=== PATIENT | male | born 1950 | race Caucasian/White ===

== ENCOUNTER 2020-06-23 14:33 | Inpatient (IN) | payer OTHER ==
[~2020-06-23] VITALS: Ht 185.4 cm; Wt 105.0 kg
[2020-06-23 20:10] VITALS: BP 133/84
[2020-06-23] MEDS ORDERED: SEROQUEL200 MG PO (23:32)
[2020-06-24] MEDS ORDERED: ASA81BEC PO (00:34)
[2020-06-24] MEDS ORDERED: MELATONIN3 M1 PO (00:34)
[2020-06-24] MEDS ORDERED: SUPER THERAVIT1 EACH PO (00:34)
[2020-06-24] MEDS ORDERED: FISH OIL 1,001000 M3 PO (00:35)
[2020-06-24] MEDS ORDERED: LEVO-T137 MCG PO (00:35)
[2020-06-24] MEDS ORDERED: LIPITOR40 MG PO (00:35)
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
--- NOTE | 2020-06-24 09:03 | NUR ---
0700 ASSUMED CARE OF PATIENT, PATIENT SITTING IN DAYROOM AWAKE INGERI CHAIR WITH LAP DONSI FASTENED IN FRONT. PATIENT CALM AT THAT TIME. 0745 PATIENT UP AMB IN HALEY PACING AND ENTERING OTHER PATIENT ROOMS. PATIENT NOT EASILY REDIRECTABLE. PATIENT SAT DOWN TO EAT BREAKFAST THEN BACK UP TO PACE IN HALLWAY. PATIENT IS EXIT SEEKING AT THIS TIME. ATIVAN 1 MG PO GIVEN @ 0815 FOR INCREASED AGGITATION. OTHER MEDS REFUSED, ATTEMPTED TO GIVE CRUSHED WELL AND PATIENT SPIT OUT MEDS.
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
[2020-06-24 09:24] VITALS: BP 140/84
--- NOTE | 2020-06-24 11:13 | NUR ---
PT DTR FRANCESCA CALLED AND ASKED ABOUT IF HE WAS ON GEODON AT THIS TIME. SHE WANTED TO HAVE GEODON A ALLERGY FOR INCREASED AGITATION AND COMBATIVENESS. GAVE FAMILY PRIVACY CODE DUE TO NOT GETTING IT WHEN HE ARRIVED DURING THE NIGHT.
--- NOTE | 2020-06-24 12:05 | NUR ---
0945 50MG THORAZINE GIVEN IM TO RIGHT DELTOID FOR INCREASED AGITATION AFTER REFUSING PO MEDICATION. ASSISTED WITH IM INJECTION FROM SECURITY AND STAFF. PATIENT UP AMB IN HALEY WITH UNSTEADY GAIT. PATIENT DOES NOT REDIRECT EASILY. WALKER GIVEN TO PATIENT AND PATIENT USES WALKER FOR A WHILE THEN LEAVES IT IN HALEY. PATIENT HARD TO UNDERSTAND PATIENT MUMBLES CONSTANTLY. PATIENT SITS AT TABLE TO EAT, HAVING DIFFICULTY FEEDING SELF AT THIS TIME. STAFF ASSISTING WITH PREPARING MEAL TO EAT. WILL CONTINUE TO OBSERVE
--- NOTE | 2020-06-24 12:25 | NUR ---
Nutrition Note: Pt assessed due to new admit to [facility]. Admitted for lewy body dementia with aggressive behaviors. PMH of lewy body dementia, HLD, hypothyroidism, CKD 3, obesity. 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 Ate 80% of breakfast this am. No c/o recent wt changes. Pt remains low nutritional risk at this time.
--- NOTE | 2020-06-24 17:14 | NUR ---
PATIENT SLEEPING IN GERICHAR QUIETLY, UNABLE TO WAKE PATIENT FOR 1600 MEDICATION. REPORTED TO NURSE TAKING OVER.
--- NOTE | 2020-06-24 18:37 | NUR ---
PT STILL RESTING IN RECLINER CHAIR.
[2020-06-24 19:00] VITALS: BP 174/101
[2020-06-24 21:25] VITALS: BP 162/90
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
[2020-06-25 09:30] VITALS: BP 118/72
[2020-06-25 10:57] VITALS: BP 118/72; BP 118/92
--- NOTE | 2020-06-25 14:03 | NUR ---
1300 RESUMMED CARE FROM OVERNIGHT SHIFT THIS AM, PATIENT IN DAY ROOM QUIET. PATIENT ALERT ORIENTED TO SELF AND PLACE ONLY PATIENT MUMBLES WE HE TALKS. PATIENT UNABLE TO TELL ME ABOUT SI/HI/AH/VH AT PRESENT DUE TO COGNITIVE DO. PATIENT CALM COOPERATIVE ABDOMEN SOFT BOWEL SOUNDS PRESENT PATIENTS LUNGS CLEAR. PATIENT SAT IN GROUPS AND SOME PARTICIPATION WILL CONTINUE TO MONITOR PATIENT FOR SAFETY AND BEHAVIORS.
[2020-06-25 14:14] LABS: URINE BILIRUBIN NEGATIVE (Negative); URINE BLOOD NEGATIVE (Negative); URINE CLARITY CLEAR; URINE COLOR YELLOW; URINE GLUCOSE-RANDOM* NEGATIVE (Negative); URINE KETONES NEGATIVE (Negative); URINE LEUKOCYTES-REFLEX NEGATIVE (Negative); URINE NITRITE-REFLEX NEGATIVE (Negative); URINE PROTEIN (DIPSTICK) NEGATIVE (Negative); URINE SPECIFIC GRAVITY 1.025 (1.005-1.035); URINE UROBILINOGEN 0.2 E.U./dl (0.2-1.0)
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
--- NOTE | 2020-06-26 05:19 | NUR ---
AWAKE AND CRAWLED OUT OF END OF BED TRIGGERING BED EXIT ALARM AT 0445-GAIT VERY UBSTEADY WHEN STAFF ATTEMPTED TO ASSIT IN AMBULATION STRUCK OUT AT NURSE STATING "LEAVE ME ALONE I CAN DO IT" STUMBLING AND ALMOST FALLING TO FLOOR-SECURITY CONTACTED TO ASSIST IN AMBULATING PT BACK TO BED-OFFERED ATIVAN AND THORAZINE PO CRUSHED IN PUDDING BUT REFUSED TO OPEN MOUTH. THORAZINE 5OMG IM GIVEN RVG WITH ASSIST OF SECURITY.
--- NOTE | 2020-06-26 09:14 | NUR ---
SW spoke to pt's Debbie and obtained history to complete assessment and tx plan. Debbie provided a secondary number to reach her [phone]. SW team will continue to monitor.
[2020-06-26 09:34] VITALS: BP 152/84
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
[2020-06-26 21:37] VITALS: BP 148/70
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
[2020-06-27 07:34] VITALS: BP 144/81
[2020-06-27 09:06] VITALS: BP 144/81
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
[2020-06-27 19:25] VITALS: BP 113/73
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
[2020-06-27 22:17] VITALS: BP 113/73
[2020-06-28 08:54] VITALS: BP 103/63
[2020-06-28 11:44] VITALS: BP 103/63
--- NOTE | 2020-06-28 13:16 | EKG ---
[address] [address] ELECTROCARDIOGRAM REPORT Name: STEPHANIE ALICEAOLL Room #: [facility] [place] ADM IN M.R.#: [id number] Admission: 06/23/20 Attend Phys: Kimberly Gonzales MD Discharge: Date of : 50 Report #: [id number] [facility] Test Date: 2020-06-28 Test Time: 11:25:34 Pat Name: YASHIRA ALICEA Department: Room: [facility] Gender: M Clinical Team Manager: FUAD : 1950 Requested By: Teo Smith Order Number: [id number] MD: Bret Tillman Measurements Intervals [place] Rate: 64 P: 51 UT: 209 QRS: 10 QRSD: 106 T: 31 QT: 409 QTc: 422 Interpretive Statements Sinus rhythm No previous ECG available for comparison Electronically Signed On 06-28-2020 13:16:13 OBSTETRICS AND GYNECOLOGY PROFESSOR by Bret Tillman [email or web address] <ELECTRONICALLY SIGNED> By: Bret Tillman MD 06/28/20 1316 1125 1125 Bret Tillman MD /CESAR
--- NOTE | 2020-06-28 15:02 | NUR ---
ASSUMED CARE THIS MORNING AT 0700. THE PATIENT WAS UP, DRESSED AND ON THE UNIT FOR BREAKFAST. HE WAS COOPERATIVE WITH TAKING HIS MEDICATIONS. HE WAS COOPERATIVE WITH ASSESSMENT ALSO. NO NEW PROBLEMS NOTED OR VOICED. ATTENDED GROUPS. HE CONTINUES TO EAT WELL. HE HAS A FLAT AFFECT AND BLAND MOOD.
[2020-06-28 19:15] VITALS: BP 152/75
--- NOTE | 2020-06-29 03:14 | NUR ---
PATIENT IS A/0X1. HE SAT IN DINING ROOM THIS EVENING AND WAS CALM AND COOPERATIVE. HE TALKED ALOT AT TIMES IF CHECKING ON THINGS OR GIVING DIRECTIONS. DID NOT MAKE SENSE BUT GOT THE IDEA THAT IN HIS HEAD HE WAS WORKING. PATIENT WAS EASILY REDIRECTABLE. PATIENT WITH OUT SIGNS OR STATEMENT OF SI/HI/AVH. PATIENT WALKS WITH A STEADY GAIT AND IS A LOW FALL RISK. PATIENT TOOK HIS MEDS CRUSHED IN YOGURT WITHOUT ISSUE. DAY NURSE SAID SHE HAD TO CRUSH MEDS BECAUSE HE WAS SPITTING THEM OUT WHOLE WHEN SHE GAVE THEM TO HIM WITH APPLESAUCE. ROUTINE ROUNDS TO ASSESS SAFETY AND STATUS OF PATIENT.
[2020-06-29 05:52] LABS: ABSOLUTE NEUTROPHILS 6.1 thou/uL (1.4-8.2); BASOPHILS 0.7 % (0.0-2.0); EOSINOPHILS 2.4 % (0.0-3.0); HEMATOCRIT 37.5 % (42.0-52.0); HEMOGLOBIN 12.1 gm/dL (14.0-18.0); LYMPHOCYTES 24.5 % (24.0-44.0); MCH 26.4 pg (26.0-34.0); MCHC 32.2 g/dL (28.0-37.0); MONOCYTES 10.9 % (1.0-8.0); PLATELET COUNT 277 thou/uL (150-400); POLYS 61.5 % (36.0-66.0); RBC 4.57 mil/uL (4.50-6.00); RDW 15.5 % (10.5-14.5); WBC 9.9 thou/uL (4.0-11.0)
[2020-06-29 06:08] LABS: CALCIUM 9.1 mg/dL (8.5-10.1); CREATININE 1.4 mg/dL (0.7-1.3); POTASSIUM 4.2 mmol/L (3.5-5.1)
[2020-06-29 07:30] VITALS: BP 111/70
--- NOTE | 2020-06-29 13:09 | NUR ---
Alert and orientated to person only. Denies SI/HI. Ambulates t/o unit with slow, steady gait. States he has no problems this am except constipation, MOM given PO. Confused speech at times. Breath sounds clear. Reg HR auscultated. Color pink with brisk capillary refill and palpable peripheral pulses. +1 edema in lower extremities. Incontinent of yellow urine, brief changed. Active bowel sounds over soft, rounded abdomen. Currently sitting in day room coloring with ROBOTICS TESTING TECHNICIAN and peers.
--- NOTE | 2020-06-29 14:33 | NUR ---
ALBERTINA spoke to pt's Natalia informing her that patient's discharge date has been set for Sunday. Natalia informed ALBERTINA she had been in contact with Ian [phone]. Her point of contact is Gissel [phone] [place]/[phone] fax. ALBERTINA spoke to Gissel Batista and informed her that pt will be ready for discharge on Sunday. ALBERTINA faxed a referral. ALBERTINA also suggested Natalia consider other placements in the event [facility] is unable to accept patient. ALBERTINA emailed a list from the Medicare.gov website to [email or web address].. ALBERTINA team will continue to follow.
[2020-06-29 19:27] VITALS: BP 133/86
[2020-06-29 20:20] VITALS: BP 133/86
--- NOTE | 2020-06-30 02:54 | NUR ---
PATIENT HAS BEEN PLEASANT AND COOPERATIVE TONIGHT. HE DID TAKE HIS MEDS TONIGHT. HALF BY MOUTH WITH WATER AND THE OTHER HALF CRUSHED IN YOGURT. HE WANDERED AIMLESSLY AROUND UNIT AND AT TIMES WOULD STOP A NURSE AND ASK WHAT HE WAS TO DO AND HOW WAS HE TO GET HOME. HE WANTED TO KNOW WHY HE IS HERE AND WHAT THE PROCESS IS. HE WAS CONCERNED ABOUT HOW HE GOT HERE. PATIENT DOES NOT TALK SENSICALLY BUT CAN UNDERSTAND AT TIMES WHAT HE IS TRYING TO GET ACROSS. EVENING WENT ON HE SEEMED TO BE ESCALATING AND STARTING TO BECOME FRUSTRATED/AGITATED ABOUT BEING HERE. LORAZEPAM 1MG PO GIVEN AT THIS TIME. ASSISTED PATIENT TO HIS ROOM AND HAD HIM LAY DOWN TO REST. PATIENT FELL ASLEEP AND HAS REMAINED SO FAR TONIGHT. BED IN LOW POSITION. ROUTINE ROUNDS TO ASSESS SAFETY AND STATUS OF PATIENT.
[2020-06-30 09:03] VITALS: BP 98/66
--- NOTE | 2020-06-30 10:28 | NUR ---
DYSPORIC MOOD THIS AM, DID TAKE AM MEDICATIONS IN APPLESAUCE-SITS AWAY FROM PEER GROUP AND NO NOTED INTERACTION WITH OTHERS-ABRUPT RESPONSES TO QUESTIONS ASKED. WHEN ATTEMPTED TO DO NURSING ASSESSMENT STATES "I'M JUST ON MY WAY HOME NOW SO NO I CAN'T-I GOT PEOPLE WAITING FOR ME" DENIES PAIN/DISCOMFORT-VS STABLE. GAIT STEADY WITHOUT ASSISTIVE DEVICES. ATE 100 PERCENT OF BREAKFAST.
--- NOTE | 2020-06-30 14:20 | NUR ---
1500 MEDICATIONS PLACED IN APPLESAUCE PER PT REQUEST-HE ATE ALL APPLSAUCE AROUND PILLS AND HANDED CUP WITH THORAZINE IN IT BACK TO THIS NURSE STATING "YOU HAVE IT" DID TAKE AFTER BEING INFORMED WE WOULD HAVE T0 GIVE IM IF DOES NOT TAKE PO-ANGRY FACIAL EXPRESSION-IS SITTING IN DAYROOM WITH PEERS-WILL CONTINUE TO ONITOR. PLEASE SEE VS SECTION COMMENTS FOR ORTHO BPS REQUESTED BY MD-NO SIGIFICANT ORTHOSTATIC CHANGES NOTED WITH POSITION CHANGES-DID BECOME [id number] TO BEND OR LIFT UP ARM WHEN NURSE COMPLETING ORTH BP'S.
--- NOTE | 2020-06-30 16:53 | NUR ---
ALBERTINA received a call from Gissel with [facility] stating that pt is accepted, but wanted to make sure he was not ready for d/c as he was still having behaviors. ALBERTINA explained that in tx team it was discussed that pt still needed some med adjustment so discharge is not anticipated to occur before this weekend. She said ok. ALBERTINA faxed updates. SW team will continue to follow pt during his stay on this unit.
[2020-06-30 19:54] VITALS: BP 111/70
--- NOTE | 2020-07-01 02:13 | NUR ---
ASSESSMENT: PT WAS CALM DURING THIS SHIFT THUS FAR. WAS SITTING IN THE DAY AREA, WATCHING TELEVISION BEFORE DOZING OFF WHILE SITTING ON THE SOFA. WENT TO BED WITHOUT INCIDENT. VSS, AFEBRILE. AMBULATES WITH STEADY GAIT. CAN BE IMPULSIVE AT TIMES. TOOK MEDS WITHOUT DIFFICULTY. SLOW PROGRESS TOWARDS DC GOALS, WILL CONTINUE TO MONITOR.
[2020-07-01 09:20] VITALS: BP 118/71
--- NOTE | 2020-07-01 11:28 | NUR ---
Alert and orientated to name only. Calm, cooperative and compliant this AM. Up ambulating with regular, steady gait. Denies SI/HI. Breath sounds clear. Reg HR auscultated. Color pink with brisk capillary refill and palpable peripheral pulses. Brief dry. Active bowel sounds over soft, rounded abdomen. Sitting quietly most of the AM in day room watching TV.
--- NOTE | 2020-07-01 13:03 | NUR ---
Nutrition Note: Pt admitted for lewy body dementia with aggressive behaviors. PMH of dementia, HLD, hypothryoidism, CKD 3, obesity. Pt continues to have good appetite eating 100% of meals and snacks. Weight remains within 5% of admission. Pt remains low nutritional risk at this time.
--- NOTE | 2020-07-01 13:32 | NUR ---
RT Progress Note- Dino has been present in both the mileu and recreation therapy groups since his admission. Dino is able to engage in conversation with peers and especially participates well during music based groups. He has not displayed any inappropriate or aggressive behavior during groups. STOCKFEED MILLER will continue to encourage his participation, especially in the afternoons when pt tends to begin to wander.
[2020-07-01 19:37] VITALS: BP 133/86
[2020-07-01 19:38] VITALS: BP 160/77
[2020-07-01 20:00] VITALS: BP 133/86; BP 160/77
--- NOTE | 2020-07-02 03:32 | NUR ---
PATIENT HAS BEEN COOPERATIVE AND REDIRECTABLE. HE WAS UP IN DINING ROOM TONIGHT AND HAD HS SNACK. HE WALKED THE HALLS TONIGHT BUT WAS NOT EXIT SEEKING HAS HE HAD BEEN. PATIENT WAS ASSISTED TO BED AFTER HE HAD GONE TO ANOTHER PATIENT'S ROOM AND CLIMBED IN THEIR BED. OTHER PATIENT WAS NOT IN ROOM. PATIENT AWOKE TWICE SO FAR TONIGHT WHEN ANOTHER PATIENT NEXT DOOR WAS YELLING OUT. THIS PATIENT THOUGHT IT WAS MORNING AND WAS ASSISTED BACK TO BED WITH OUT ISSUE. PATIENT HAD TROUBLE UNDERSTANDING HOW TO TAKE HIS HS MEDS. HE COULD NOT FOLLOW THE STEPS. HE PUT THE PILLS IN HIS MOUTH AND WAS TOLD TO TAKE A DRINK OF WATER AND HE SPIT THE PILLS INTO THE WATER INSTEAD. CRUSHED PILLS IN APPLESAUCE AT THAT TIME AND PATIENT TOOK WITH OUT ISSUE THEN. NO SIGNS OF PAIN. NO SI/HI/AVH NOTED. GAIT STEADY. PATIENT HAS BEEN CALM. PATIENT APPEARS TO BE SLEEPING AT THIS TIME WITH BED IN LOW POSITION. CONTINUING TO MONITOR.
[2020-07-02 09:14] VITALS: BP 118/71
[2020-07-02 11:03] VITALS: BP 118/71
--- NOTE | 2020-07-02 13:05 | NUR ---
ALBERTINA spoke with both Corry and Faustina with [facility] and provided an update. SW will touch basis with them on Sunday and schedule an assessment. SW team will continue to follow pt during his stay on this unit.
[2020-07-02 19:46] VITALS: BP 137/89
--- NOTE | 2020-07-02 23:46 | NUR ---
Assumed care on 07/02/20 @ 1900, [facility] the [facility], trying to exit through any closed door he encounters. Calm and cooperative, redirectale and stable to ambulate. Cooperates with assessment and medication administration. Awakened @ about midnight and repeatedly asked to shave. Redirected to go back to bed each time. Will continue to monitor for safety and comfort as per unit protocol.
[2020-07-02 23:56] VITALS: BP 137/89
--- NOTE | 2020-07-03 00:39 | NUR ---
Awake at midnight, experiencing insomnia, @ 0030 [id number] provided for generalized pain and Chloropromazine 50 P.O. and Lorazepam 1mg P.O. provided for restlessness and insomnia. Took meds whole with water, laid down in bed, then in 5 minutes was up again ambulating the halls. Will continue to monitor for safety and comfort.
[2020-07-03 08:36] VITALS: BP 152/85
--- NOTE | 2020-07-03 13:57 | NUR ---
ASSUMED PT CARE THIS AM. PT VSS, A&OX2. PT TOOK MEDS WELL THIS AM WHOLE. COOPERATIVE WITH STAFF AND REDIRECTABLE. WALKING AROUND UNIT TRYING TO OPEN DOORS. WALKED IN ANOTHER PATIENTS ROOM, BUT WAS REDIRECTED TO HIS OWN ROOM. NOT AGITATED, DENIES SI/HI.
[2020-07-03 20:06] VITALS: BP 146/87
[2020-07-03 21:34] VITALS: BP 146/87
--- NOTE | 2020-07-03 23:14 | NUR ---
9037 RESUMMED CARE FROM DAY SHIFT THIS EVENING, PATIENT PACING THE HALLS AND AT DOOR TRYING TO GET OUT. I EXPLAINED TO PATIENT THAT HE IS NOT READY TO LEAVE YET. PATIENT ALERT ORIENTED TIMES SELF AND PLACE PATIENT DENIES SI/HI/AH/VH AT PRESENT. PATIENTS ABDOMEN SOFT BOWEL SOUNDS PRESENT PATIENTS LUNGS CLEAR. PATIENT TOOK MEDICATION WITHOUT INCIDENCE PATIENT CALM AND EASY TO REDIRECT. PATIENT WENT TO BED AND IS RESTING QUIETLY WILL CONTINUE TO MONITOR PATIENT FOR SAFETY AND BEHAVIORS.
[2020-07-04 09:17] VITALS: BP 138/91
[2020-07-04 10:30] VITALS: BP 138/91
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
[2020-07-04 19:35] VITALS: BP 134/75
[2020-07-04 21:15] VITALS: BP 134/75
--- NOTE | 2020-07-05 03:09 | NUR ---
Assumed pt care at 1900. A/OX2,calf sitting on the chair talking to himself.No further N/V. Had a temp of 101.3 temporal at shift change medicated with Tylenol and down to 98.5. Pt took his HS meds whole w/o any problems. Denied pain on assessment. Assisted up to bed AX2 as pt was very tired.Incontinent/cont of bladder. Pt has been resting in bed w/o attempts to get up on his own. Denies SI/HI on assessment. Fall precautions in place,will continue to monitor pt.
[2020-07-05 09:02] LABS: ABSOLUTE NEUTROPHILS 8.3 thou/uL (1.4-8.2); BASOPHILS 0.2 % (0.0-2.0); EOSINOPHILS 0.9 % (0.0-3.0); HEMATOCRIT 35.1 % (42.0-52.0); HEMOGLOBIN 11.5 gm/dL (14.0-18.0); LYMPHOCYTES 3.4 % (24.0-44.0); MCH 26.4 pg (26.0-34.0); MCHC 32.7 g/dL (28.0-37.0); MCV 80.8 fL (80.0-100.0); MONOCYTES 7.3 % (1.0-8.0); PLATELET COUNT 263 thou/uL (150-400); POLYS 88.2 % (36.0-66.0); RBC 4.35 mil/uL (4.50-6.00); WBC 9.4 thou/uL (4.0-11.0)
[2020-07-05 09:09] LABS: CALCIUM 8.5 mg/dL (8.5-10.1); CREATININE 1.8 mg/dL (0.7-1.3); MAGNESIUM 1.9 mg/dL (1.8-2.4); POTASSIUM 4.2 mmol/L (3.5-5.1)
[2020-07-05 10:08] VITALS: BP 110/68
[2020-07-05 12:39] LABS: URINE BILIRUBIN NEGATIVE (Negative); URINE BLOOD NEGATIVE (Negative); URINE CLARITY CLEAR; URINE GLUCOSE-RANDOM* NEGATIVE (Negative); URINE KETONES NEGATIVE (Negative); URINE LEUKOCYTES-REFLEX NEGATIVE (Negative); URINE NITRITE-REFLEX NEGATIVE (Negative); URINE PROTEIN (DIPSTICK) TRACE (Negative); URINE SPECIFIC GRAVITY 1.025 (1.005-1.035); URINE UROBILINOGEN 0.2 E.U./dl (0.2-1.0)
[2020-07-05 12:42] LABS: URINE COLOR AMBER
--- NOTE | 2020-07-05 13:14 | NUR ---
ALBERTINA sent updates to BD giancarlo Wagner for pt. ALBERTINA contacted pt's Natalia and provided an update; she said pt is nearing d/c and will be likely ready for d/c on . She asked to have a zoom meeting with pt. ALBERTINA arranged that to occur on 07/06 @ 11am. ALBERTINA also received a copy of an incapcitation letter for pt; Natalia asked that Dr. Smith complete one for Social Security. ALBERTINA sent a copy in an encrypted email to [email or web address].. ALBERTINA will also mail a hard copy of pt's letter. ALBERTINA team will continue to follow pt during his stay on this unit.
--- NOTE | 2020-07-05 18:49 | NUR ---
Assumed pt care at 0700. pt was co-operative and sleeping. alert and oriented x2. pt took meds whole with thin liquid. pt was in his room all day. pt had a fever of 101.3 last night. UA was collected, result came back negative. a covid test was done. sweat noted during assessment on patient forehead and body. Dr REYNOLDS and DR baugh was informed of pt condition. magazine writer fed pt 80% of his breakfast. pt was incontinent x3. pt TEM today was 99.5. will continue to monitor.
[2020-07-05 19:46] VITALS: BP 113/68
--- NOTE | 2020-07-06 03:00 | NUR ---
07-05-20 CARE TRANSFERRED 1899. PT SUPINE IN BED RESTING WITH EYES CLOSED, PT DROWSY, AWAKEN TO VOICE AND SHAKING PT FOOT. PT AAOX1, VSS, RR EVEN AND NONLABORED ON RA. PT DENIES PAIN AND SI/HI. DURING MEDICATION ADMIN PT WAS STILL RESTING SUPINE WITH EYES CLOSED, AWAKEN TO VOICE AND SHAKING FOOT, PT REQUESTED TO TAKE HIS MEDICATION LATER, PT WAS APPROACHED 2ND TIME AMD PT AGAIN REQUESTED TO TAKE MEDICATION LATER. LATER MEDICATION WAS WASTED AND PT HAS REMAINED RESTING WITH EYES CLOSED. ZERO S/S OF ACUTE DISTRESS NOTED, PT WILL CONTINUE TO BE MONITOR PER [facility] PROTOCOL.
[2020-07-06 09:59] VITALS: BP 106/63
--- NOTE | 2020-07-06 11:51 | NUR ---
ALBERTINA and Dr. Smith provided an update to pt's including his medical status. ALBERTINA assisted in an assessment for pt with [facility]; pt was asleep during the assessment in his room. SW answered questions about the supports needed; pt's nurse answered other medical questions. SW team will continue to follow pt during her stay on this unit.
--- NOTE | 2020-07-06 14:57 | NUR ---
0700 ASSUMED CARE OF PATIENT. PATIENT IN ROOM AT THAT TIME. PATIENT OUT TO DAYROOM SITTING ON COUCH WATCHING TV, FALLING ASLEEP OFF AND ON. PATIENT FEEDS SELF EATING 100% OF MEAL. MEDICATIONS TALKEN WHOLE WITHOUT DIFFICULTIES. LS CLEAR, BS ACTIVE, NO C/O PAIN. DENIES NEEDS. PATIENT PRESENT IN GROUP. PATIENT AMB IN HALEY WANDERING, TO ROOM AND LAYS IN BED. PATIENT RESTING WITH EYES CLOSED, RELATIONSHIP ASSOCIATE WAKES PT UP. TB TEST DONE TO RIGHT INNER FAREARM, PATIENT SLEPT THROUGHT TB INJ. PATIENT PRESENT IN GROUP AT THIS TIME
[2020-07-06 19:58] VITALS: BP 112/67
--- NOTE | 2020-07-07 03:01 | NUR ---
07-06-20 CARE TRANSFERRED 0 OBSERVED PT SUPINE IN BED RESTING. LATER PT EASILY AWAKEN TO VOICE, PT AAOX2, VSS, RR EVEN AND NONLABORED ON RA. PT DENIES SI/HI AND PAIN. PT PRESENTS DROWSY, CALM AND COOPERATIVE. ZERO S/S OF ACUTE DISTRESS NOTED, PT WILL CONTINUE TO BE MONITOR PER [facility] PROTOCOL.
[2020-07-07 10:09] VITALS: BP 147/63
--- NOTE | 2020-07-07 11:29 | NUR ---
ALBERTINA received an email from Gissel with [facility] stating they can transport pt on 07/08 @1300. SW team will continue to follow pt during his stay on this unit.
--- NOTE | 2020-07-07 15:05 | NUR ---
0700 ASSUMED CARE OF PATIENT, PATIENT SITTING IN DAYROOM AT THAT TIME. PATIENT CALM AND COOPERATIVE. PATIENT EATS BREAKFAST WELL. NO C/O PAIN, LS CLEAR, BS ACTIVE. PATIENT TAKES MEDICATION WHOLE WITHOUT DIFFICULTY. PATIENT IN GROUPS TODAY. PATIENT NOTED WANDERING HALLS ASKING TO GET OUT. PATIENT WANDERING INTO OTHER PATIENTS ROOM AND EASILY REDIRECTABLE. WILL CONTINUE TO OBSERVE
[2020-07-07 20:42] VITALS: BP 139/90
--- NOTE | 2020-07-08 05:15 | NUR ---
07-07-20 CARE TRANSFERRED 1900 OBSERVED PT SITTING IN DAY ROOM WATCHING TV. PT AAOX3, VSS, RR EVEN AND NONLABORED ON RA. PT DENIES SI/HI AND PAIN, PT HAS BEEN PLESANT, CALM AND COOPERATIVE THROUGHOUT NURSING ASSESSMENT. DURING MEDICATION PT HAD NO DIFFICULTIES. LATER PT REPORTED FEELING A LITTLE ANXIOUS ABOUT LEAVING TOMORROW, PT REMAINED CALM AND WENT BACK TO DAY ROOM. ZERO S/S OF ACUTE DISTRESS NOTED, PT WILL CONTINUE TO BE MONITOR PER [facility].
[2020-07-08 08:06] VITALS: BP 114/55
[2020-07-08] MEDS ORDERED: ARICEPT10 M1 PO (10:03)
[2020-07-08] MEDS ORDERED: TRAZODONE HCL100 MG PO (10:05)
[2020-07-08] MEDS ORDERED: CHLORPROMAZINE25 M1 PO (10:06)
[2020-07-08] MEDS ORDERED: NAMENDA 5 MG TAB5 M1 PO (10:10)
[2020-07-08] MEDS ORDERED: COLACE 100 MG100 MG PO (10:10)
[2020-07-08] MEDS ORDERED: PEPCID20 MG PO (10:13)
--- NOTE | 2020-07-08 10:31 | NUR ---
Nutrition followup: Pt continues on [facility] unit. Continues to eat overall well, 80-100% of meals with occasional refusal. No weight since 07/03 however no prior concerns, BMI 30.5, class 1 obesity. Planned D/C today. Low risk.
--- NOTE | 2020-07-08 12:47 | NUR ---
ALBERTINA D/C NOTE ALBERTINA faxed to BEAN of [facility] pt's discharge docs including a letter enacting his DPOA. ALBERTINA will file docs in pt's hospital file. No other needs for SW team to address at this time.
--- NOTE | 2020-07-08 14:25 | NUR ---
0700 ASSUMED CARE OF PATIENT. PATIENT AMB WITH STEADY GAIT. PATIENT WANDERS HALEY, REDIRECTABLE EASILY THIS AM. PATIENT NOTED SLEEPING OFF AND ON IN DAYROOM. CALM AND QUIET. BS ACTIVE, LS CLEAR, NO C/O PAIN. MEDICATIONS TAKEN WHOLE WITHOUT DIFFICULTY. PATIENT DC'D AT 1315 VIA TRANSPORT PER . REPORT GIVEN TO FACILITY @1130 AM TO [facility]. MEDICATIONS FAXED TO [facility] PER FACILITIES REQUEST.
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
== END 2020-07-08 13:15 | DRG 57 ==
LOC: SBH
PROVIDERS: Internal Medicine; Nurse Practitioner Family; Psychiatry & Neurology Psychiatry; ADMIT Psychiatry & Neurology Psychiatry; ATTEND Psychiatry & Neurology Psychiatry
DX: G31.83 Neurocognitive disorder with Lewy bodies (principal); F02.81 Dementia in other diseases classified elsewhere, unspecified severity, with behavioral disturbance; N18.30 Chronic kidney disease, stage 3 unspecified; F32.9 Major depressive disorder, single episode, unspecified; E78.5 Hyperlipidemia, unspecified; F01.50 Vascular dementia, unspecified severity, without behavioral disturbance, psychotic disturbance, mood disturbance, and anxiety; E03.9 Hypothyroidism, unspecified; E66.9 Obesity, unspecified; Z20.822 Contact with and (suspected) exposure to COVID-19; G47.00 Insomnia, unspecified; Z66 Do not resuscitate; F41.9 Anxiety disorder, unspecified; R41.0 Disorientation, unspecified; Z88.8 Allergy status to other drugs, medicaments and biological substances; Z68.30 Body mass index [BMI] 30.0-30.9, adult; Z88.0 Allergy status to penicillin
CPT/HCPCS: 10880

== ENCOUNTER 2020-06-23 16:14 | Emergency (ER) | payer OTHER ==
[~2020-06-23] VITALS: Ht 188 cm; Wt 81.7 kg
[2020-06-23 19:56] VITALS: BP 123/77
[2020-06-23] MEDS ORDERED: SEROQUEL200 MG PO (23:32)
[2020-06-24] MEDS ORDERED: ASA81BEC PO (00:34)
[2020-06-24] MEDS ORDERED: SUPER THERAVIT1 EACH PO (00:34)
[2020-06-24] MEDS ORDERED: MELATONIN3 M1 PO (00:34)
[2020-06-24] MEDS ORDERED: LIPITOR40 MG PO (00:35)
[2020-06-24] MEDS ORDERED: LEVO-T137 MCG PO (00:35)
[2020-06-24] MEDS ORDERED: FISH OIL 1,001000 M3 PO (00:35)
== END 2020-06-23 19:57 | disposition still patient (30) ==
LOC: ER 16:14
DX: G30.8 Other Alzheimer's disease (principal); F02.81 Dementia in other diseases classified elsewhere, unspecified severity, with behavioral disturbance; Z88.0 Allergy status to penicillin; Z20.822 Contact with and (suspected) exposure to COVID-19

== ENCOUNTER 2020-07-18 15:21 | Emergency (ER) | payer OTHER ==
[~2020-07-18] VITALS: Ht 188 cm; Wt 81.7 kg
[~2020-07-18 15:21] MED LIST: ARICEPT10 M1 PO; ASA81BEC PO; CHLORPROMAZINE25 M1 PO; COLACE 100 MG100 MG PO; FISH OIL 1,001000 M3 PO; LEVO-T137 MCG PO; LIPITOR40 MG PO; MELATONIN3 M1 PO; NAMENDA 5 MG TAB5 M1 PO; PEPCID20 MG PO; SEROQUEL200 MG PO; SUPER THERAVIT1 EACH PO; TRAZODONE HCL100 MG PO
[2020-07-18 15:22] VITALS: BP 127/69
[2020-07-18 16:21] LABS: HEMATOCRIT 36.6 % (42.0-52.0); HEMOGLOBIN 11.6 gm/dL (14.0-18.0); MCH 26.3 pg (26.0-34.0); MCHC 31.7 g/dL (28.0-37.0); MCV 82.8 fL (80.0-100.0); PLATELET COUNT 319 thou/uL (150-400); RBC 4.42 mil/uL (4.50-6.00); RDW 16.2 % (10.5-14.5); WBC 11.6 thou/uL (4.0-11.0)
[2020-07-18 16:51] LABS: ABSOLUTE NEUTROPHILS 6.7 thou/uL (1.4-8.2)
[2020-07-18 16:52] LABS: ANISOCYTOSIS 1+
[2020-07-18 16:54] LABS: CALCIUM 8.7 mg/dL (8.5-10.1); CREATININE 1.3 mg/dL (0.7-1.3); POTASSIUM 3.9 mmol/L (3.5-5.1)
[2020-07-18 17:01] LABS: ALBUMIN 3.3 g/dL (3.4-5.0); TOTAL BILIRUBIN 0.5 mg/dL (0.2-1.0); TOTAL PROTEIN 6.9 g/dL (6.4-8.2)
[2020-07-18 18:25] LABS: URINE BILIRUBIN NEGATIVE (Negative); URINE BLOOD NEGATIVE (Negative); URINE CLARITY CLEAR; URINE COLOR YELLOW; URINE GLUCOSE-RANDOM* NEGATIVE (Negative); URINE KETONES NEGATIVE (Negative); URINE LEUKOCYTES-REFLEX NEGATIVE (Negative); URINE NITRITE-REFLEX NEGATIVE (Negative); URINE PROTEIN (DIPSTICK) NEGATIVE (Negative); URINE UROBILINOGEN 0.2 E.U./dl (0.2-1.0)
[2020-07-18 19:55] VITALS: BP 133/75
[2020-07-19] MEDS ORDERED: LIPITOR40 MG PO (01:25)
--- NOTE | 2020-07-19 07:25 | EKG ---
[place] [address] [facility] [place] [address] ELECTROCARDIOGRAM REPORT Name: STEPHANIE ALICEAOLL [id number] Admission: 07/18/20 Attend Phys: Discharge: 07/18/20 Date of : 50 Report #: [id number] [facility] Test Date: 2020-07-18 Test Time: 15:30:03 Pat Name: YASHIRA ALICEA Department: Room: 170 Gender: M Charter Coordinator: ALIA : 1950 Requested By: Deanne Curry Order Number: [id number] MD: Ray Glez Measurements Intervals [place] Rate: 60 P: 38 MT: 212 QRS: -19 QRSD: 99 T: 14 QT: 423 QTc: 423 Interpretive Statements Sinus rhythm Borderline prolonged MT interval Borderline left axis deviation Compared to ECG 06/28/2020 11:25:34 No significant changes Electronically Signed On 07-19-2020 7:25:03 CDT by Ray Glez [email or web address] <ELECTRONICALLY SIGNED> By: Ray Glez MD, [facility] 07/19/20 0725 D: 03/1529 29 Ray Glez MD, FACC /EPI
== END 2020-07-18 21:12 | disposition still patient (30) ==
LOC: ER 15:21 → EROBS 20:33 → ER 20:33
PROVIDERS: Physician Assistant
DX: F91.1 Conduct disorder, childhood-onset type (principal); G31.83 Neurocognitive disorder with Lewy bodies; F02.80 Dementia in other diseases classified elsewhere, unspecified severity, without behavioral disturbance, psychotic disturbance, mood disturbance, and anxiety; E78.5 Hyperlipidemia, unspecified; E03.9 Hypothyroidism, unspecified; N18.9 Chronic kidney disease, unspecified; Z79.899 Other long term (current) drug therapy; Z79.82 Long term (current) use of aspirin; Z88.0 Allergy status to penicillin; Z88.8 Allergy status to other drugs, medicaments and biological substances; Z20.822 Contact with and (suspected) exposure to COVID-19

== ENCOUNTER 2020-07-18 18:26 | Inpatient (IN) | payer OTHER ==
[~2020-07-18] VITALS: Ht 188 cm; Wt 82.2 kg
[2020-07-19] MEDS ORDERED: LIPITOR40 MG PO (01:25)
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
[2020-07-19 06:34] VITALS: BP 121/57
--- NOTE | 2020-07-19 09:04 | NUR ---
Nutrition: pt admit late last pm with lewy body dementia with behavorial disturbance. Hx of HLD, hypothroidism, CKD, obesity. No significant wt change from admit a couple of weeks ago. Albumin 3.3. MVI and other meds reviewed. Nsg reported pt ate 100% of breakfast today. Assessed at low nutrition risk.
[2020-07-19 10:24] VITALS: BP 124/84
[2020-07-19 13:58] VITALS: BP 124/84
--- NOTE | 2020-07-19 14:49 | NUR ---
1450 RESUMMED CARE FROM OVERNIGHT SHIFT THIS AM, PATIENT IN DAY ROOM SITTING QUIETLY. PATIENT ALERT TO SELF ONLY PATIENT CALM COOPERATIVE HAS SOME CONFUSION AND FORGETFULNESS. PATIENT UNABBLE TO TELL ME ABOUT SI/HI/AH/VH AT PRESENT DUE TO LEWYBODY DEMENTIA. PATIENT ABDOMEN SOFT BOWEL SOUNDS PRESENT PATIENTS LUNGS CLEAR. PATIENT HAS NOT DISPLAYED ANY BEHAVIORS THIS SHIFT WILL CONTINUE TO MONITOR PATIENT FOR SAFETY AND BEHAVIORS.
--- NOTE | 2020-07-20 02:10 | NUR ---
ASSESSMENT: PT REMAIN ALERT AND ORIENT TIMES TWO, CONFUSED TO TIME AND PLACE. UP AD JONAS WITH STEADY GAIT. WONDERS AROUND UNIT. DID GET IN BED IN AN EMPTY ROOM THAT WAS NOT HIS ASSIGNED ROOM. LOTS OF ENCOURAGEMENT GIVEN TO CONVEINCE HIM THAT HE WAS IN THE INCORRECT ROOM. SLOW PROGRESS TOWARDS DC GOALS. WILL CONTINUE TO MONITOR.
[2020-07-20 07:55] VITALS: BP 113/80
[2020-07-20 19:23] VITALS: BP 115/67
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
[2020-07-21 09:10] VITALS: BP 94/62
[2020-07-21 09:11] VITALS: BP 109/72
[2020-07-21 09:12] VITALS: BP 116/64
--- NOTE | 2020-07-21 17:07 | NUR ---
0700 ASSUMED CARE OF PATIENT, PATIENT IN DAYROOM AT THAT TIME. AT TABLE FOR BREAKFAST EATING 100% OF MEAL. NOTIFIED DIGITAL MEDIA PLANNER FOR DOUBLE PORTIONS FOR PATIENT. MEDICATIONS TAKEN WHOLE WITHOUT DIFFICULTY. PATIENT PRESENT IN GROUP THIS AM. PATIENT AMB WITH STEADY GAIT WANDERING IN HALEY. LS CLEAR, BS ACTIVE, NO C/O PAIN. PATIENT EASILY REDIRECTABLE. FLAT AFFECT NOTED, ORIENTED TO SELF.
[2020-07-21 19:18] VITALS: BP 113/66
--- NOTE | 2020-07-22 01:57 | NUR ---
PT ASSESSMENT COMPLETED AND VSS. MEDS GIVEN ORDERED AND WELL TOLERATED. PT WANDERING HALLS EARLY DURING SHIFT. STEADY. PT WALKING INTO PT ROOMS AND CONFUSED ABOUT WHERE HE WAS. REDIRECTED PT WITHOUT A PROBLEM. PT CALM BUT CONFUSED. PT SLEEPING IN HIS BED. DENIES NEEDS. WILL CONTINUE TO MONITOR FREQUENTLY.
[2020-07-22 05:48] LABS: HEMATOCRIT 35.5 % (42.0-52.0); HEMOGLOBIN 11.5 gm/dL (14.0-18.0); MCH 26.4 pg (26.0-34.0); MCHC 32.2 g/dL (28.0-37.0); MCV 81.8 fL (80.0-100.0); RBC 4.34 mil/uL (4.50-6.00); WBC 8.4 thou/uL (4.0-11.0)
[2020-07-22 06:25] LABS: CALCIUM 8.7 mg/dL (8.5-10.1); CREATININE 1.5 mg/dL (0.7-1.3); MAGNESIUM 2.1 mg/dL (1.8-2.4); POTASSIUM 4.3 mmol/L (3.5-5.1)
[2020-07-22 06:28] LABS: FOLIC ACID 21.1 ng/mL (8.6-58.9)
[2020-07-22 09:35] VITALS: BP 104/67
[2020-07-22 09:36] VITALS: BP 110/63; BP 91/58
[2020-07-22 10:02] VITALS: BP 104/67
--- NOTE | 2020-07-22 13:31 | NUR ---
1300 RESUMMED CARE FROM OVERNIGHT SHIFT THIS AM, PATIENT IN DAY ROOM SITTING QUIETLY. PATIENT IS ALERT ORIENTED TO SELF ONLY, PATIENT IS UNABLE TO TELL ME ABOUT SI/HI/AH/VH AT PRESENT. PATIENT HAS DEMENTIA/LEWY BODY PATIENTS ABDOMEN SOFT BOWEL SOUNDS PRESENT. PATIENTS LUNGS CLEAR PATIENT LIKES TO WALK THE HALLS AND GETS RESTLESS AT TIMES. PATIENT HAS NOT DISPLAYED AND BEHAVIORS WILL CONTINUE TO MONITOR PATIENT FOR SAFETY AND BEHAVIORS.
[2020-07-22 19:15] VITALS: BP 117/75
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
[2020-07-22 20:33] VITALS: BP 117/75
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
[2020-07-23 08:30] VITALS: BP 114/76
--- NOTE | 2020-07-23 09:10 | NUR ---
PT FEEDING SELF BREAKFAST. PT DID WELL. NO COMPLAINTS. PT TOOK MEDS WHOLE WITH WATER AFTER COUNTING HIS PILLS. ANOTHER STAFF MEMBER WANTED THIS TECHNOLOGY INFUSION SPECIALIST FOR A WITNESS FOR INSULIN, PT STATED WHERE DO I SIGN. PT WANDERS AROUND UNIT. PT SITTING AT THIS TIME FOR GROUP.
[2020-07-23 10:09] VITALS: BP 114/76
--- NOTE | 2020-07-23 16:54 | NUR ---
07/22/2020 SW was able to speak with the Pt , Natalia. Natalia was unaware that [facility] would not accept the Pt back into. Natalia begin to cry and express frustration about the issue. Cortney stated, " No one has called me and I don't know what to do next". SW provide emotional support and education on the situation. SW ensured that [facility] will continue to work with her on a placement. SW also informed Natalia to contact [facility] concerning the matter. SW provide the contact number for the director of [facility]. ALBERTINA zully continue to follow up
--- NOTE | 2020-07-23 16:59 | NUR ---
ALBERTINA sent a referral to the following: [facility] informed they sent referrals to the following: [facility]
--- NOTE | 2020-07-23 17:05 | NUR ---
PT completed a video assessment with [facility]. They are unsure if they can accept Pt due to the Pt hitting and aggression. Adwoa stated she would like an update Sunday on Pt's progress over the weekend
[2020-07-23 19:34] VITALS: BP 109/62
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
[2020-07-24 09:12] VITALS: BP 101/62
[2020-07-24 11:01] VITALS: BP 101/62
--- NOTE | 2020-07-24 12:44 | NUR ---
1240 RESUMMED CARE FROM OVERNIGHT SHIFT THIS AM, PATIENT IN DAY ROOM SITTING QUIET IN CHAIR. PATIENT ATE BREAKFAST TOOK MEDICATION WITHOUT INCIDENCE. PATIENT UNABLE TO TELL ME ABOUT SI/HI/AH/VH AT PRESENT DUE TO COGNITIVE DO. PATIENTS ABDOMEN SOFT BOWEL SOUNDS PRESENT PATIENTS LUNGS CLEAR. PATIENT HAS NOT DISPLAYED ANY BEHAVIORS THIS SHIFT. CALM COOPERATIVE WILL CONTINUE TO MONITOR PATIENT FOR SAFETY AND BEHAVIORS.
--- NOTE | 2020-07-24 13:43 | NUR ---
DURING WEEK ONE OF HIS ADMISSION, YASHIRA HAS BEEN SEMI ACTIVE WITH PEERS AND STAFF MEMBERS. PT HAS PROVIDED MODERATE ATTENDACE IN MAJORITY OF RECREATION THERAPY GROUPS. IT IS ENCOURAGED BY THE RECREATION THERAPIST THAT HE WILL CONTINUE TO IMPROVE COPING SKILLS AND SELF ESTEEM TO REDUCE ANY FUTURE STRESSORS.
[2020-07-24 19:30] VITALS: BP 120/77
[2020-07-25 08:20] VITALS: BP 126/77
--- NOTE | 2020-07-25 14:33 | NUR ---
ALBERTINA faxed updates to [facility]. ALBERTINA team will continue to follow.
--- NOTE | 2020-07-25 18:00 | NUR ---
0700 ASSUMED CARE OF PATIENT, PATIENT SITTING IN DAYROOM AT THAT TIME. PATIENT QUIET AND SLEEPS OFF AND ON IN CHAIR. MEDICATIONS TAKEN WHOLE WITHOUT DIFFICULTY. NOTED WANTERING HALEY AND INTO OTHER PATIENTS ROOM. FOUND PATIENT LYING IN ANOTHER PATIENTS BED THIS AFTERNOON. PATIENT EASILY REDIRECTABLE. LS CLEAR, BS ACTIVE, NO C/O PAIN. FLAT AFFECT AT TIMES NOTED. WILL CONTINUE TO OBSERVE
[2020-07-25 19:28] VITALS: BP 100/69
[2020-07-25 20:30] VITALS: BP 100/69
--- NOTE | 2020-07-26 02:17 | NUR ---
PATIENT HAS BEEN CALM AND COOPERATIVE TONIGHT. HE WAS SITTING AT A TABLE IN THE DINING ROOM THIS EVENING WHEN I ASSUMED CARE. HE TALKS NONSENSICAL. HE DOES ANSWER YES/NO QUESTIONS BUT NOT ALWAYS APPROPRIATELY. PATIENT HAD A HS SNACK AND WENT TO BED. PATIENT TOOK HIS HS MEDS WHOLE WITH WATER. HE DENIES PAIN. NO SI/HI/AVH NOTED. HE WALKS WITH A STEADY GAIT. ROUTINE ROUNDS TO ASSESS SAFETY AND STATUS OF PATIENT.
--- NOTE | 2020-07-26 10:45 | NUR ---
Nutrition F/u: question accuracy of current wt 181 lb, prior wt's appear stable. Intake 100% most meals; has order for double portions. BUN 23, Cr 1.5, albumin 3.3. Meds reviewed. Continues at low nutrition riks.
--- NOTE | 2020-07-26 11:55 | NUR ---
Pt completed an assessment with [facility]
--- NOTE | 2020-07-26 19:49 | NUR ---
PATIENT CALM AND COOPERATIVE TODAY WITH NO AGGRESSIVE BEHAVIORS. PATIENT EATS DOUBLE PORTIONS AT MEALS. LS CLEAR, BS ACTIVE. MEDICATIONS TAKEN WHOLE WITHOUT DIFFICULTY. PATIENT PLEASANTLY CONFUSED ASKING IF ALL THE CHILDREN WERE SERVED. AMB WITH STEADY GAIT.
[2020-07-26 19:52] VITALS: BP 148/84
[2020-07-26 20:45] VITALS: BP 148/84
[2020-07-27 14:00] VITALS: BP 104/61; BP 107/54; BP 134/76
--- NOTE | 2020-07-27 17:56 | NUR ---
PATIENT CALM AND COOPERATIVE. AMB WITH STEADY GAIT, WANDERS IN HALEY AND OTHER PATIENTS ROOMS. MEDICATIONS TAKEN WHOLE WITHOUT DIFFICULTY. PATIENT CONFUSED AND ANSWERS SIMPLE QUESTIONS. PATIENT ATE 100% OF ALL MEALS. NO C/O PAIN, LS CLEAR, BS ACTIVE.
[2020-07-27 19:01] VITALS: BP 130/79
--- NOTE | 2020-07-27 20:02 | NUR ---
Assumed care on 07/27/20 @ 1900, ambulating throughout the mileu with a steady gait. A&Ox1 1/2 to self and only When asked an assessment question, says "let me check on that" and stands up to walk away. When reassured that he can stay, he sits back down. Will continue to observe for safety and comfort as per unit protocol.
[2020-07-27 23:23] VITALS: BP 130/79
[2020-07-28 07:30] VITALS: BP 156/76
[2020-07-28] MEDS ORDERED: ASA81BEC PO (09:31)
[2020-07-28] MEDS ORDERED: TRAZODONE HCL100 MG PO (09:31)
[2020-07-28] MEDS ORDERED: CHLORPROMAZINE100 MG PO (09:32)
[2020-07-28] MEDS ORDERED: CHLORPROMAZINE25 M3 PO (09:33)
[2020-07-28] MEDS ORDERED: NAMENDA 5 MG TAB5 M1 PO (09:34)
[2020-07-28] MEDS ORDERED: COLACE 100 MG100 MG PO (09:35)
[2020-07-28] MEDS ORDERED: SYNTHROID175 MCG PO (09:36)
[2020-07-28] MEDS ORDERED: PEPCID20 MG PO (09:36)
[2020-07-28] MEDS ORDERED: UNICOMPLEX M TA1 TA1 PO (09:37)
[2020-07-28 09:47] VITALS: BP 156/76
--- NOTE | 2020-07-28 11:23 | NUR ---
Alert and orientated to name only. Confused speech. Able to follow commands. Ambulates with regular, steady gait. Denies SI/HI. Breath sounds clear. Reg HR auscultated. Color pink with brisk capillary refill and palpable peripheral pulses. +2 edema in feet. Yellow urine per toilet. Active bowel sounds over soft, rounded abdomen. Last documented BM was 07/24, Milk of Magnesium given per PRN order. Report called to Meghan Reyes at [facility]. Spoke with Debbie, gives consent for transfer. 1120 Left unit per WC with [facility] with belongings, discharge papers and snacks. Unable to find jeans and shirt as documented on inventory. No s/o distress.
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
== END 2020-07-28 11:20 | DRG 57 ==
LOC: SBH
PROVIDERS: Internal Medicine; ADMIT Psychiatry & Neurology Psychiatry; ATTEND Psychiatry & Neurology Psychiatry
DX: G31.83 Neurocognitive disorder with Lewy bodies (principal); F01.51 Vascular dementia, unspecified severity, with behavioral disturbance; N18.30 Chronic kidney disease, stage 3 unspecified; F02.81 Dementia in other diseases classified elsewhere, unspecified severity, with behavioral disturbance; G47.00 Insomnia, unspecified; E78.5 Hyperlipidemia, unspecified; E03.9 Hypothyroidism, unspecified; E66.9 Obesity, unspecified; Z66 Do not resuscitate; Z68.23 Body mass index [BMI] 23.0-23.9, adult; Z88.0 Allergy status to penicillin; Z88.8 Allergy status to other drugs, medicaments and biological substances
CPT/HCPCS: 10880